=== PATIENT | female | born 1980 | race American Indian/Alaskan Native ===

== ENCOUNTER 2019-07-13 16:37 | Emergency (ER) | payer SELFPAY ==
[2019-07-13 16:48] VITALS: BP 144/96
--- NOTE | 2019-07-13 17:22 | Event Note ---
ED Screening Note ED Screening Note: This initial assessment/diagnostic orders/clinical plan/treatment(s) is/are subject to change based on patients health status, clinical progression and re- assessment by fellow clinical providers in the ED. Further treatment and workup at subsequent clinical providers discretion. Patient/guardian urged not to elope from the ED as their condition may be serious if not clinically assessed and managed. Initial orders include: 38yo black female states that she has neck pain that began 3 days ago while she was laying in bed. She states that it is her posterior neck and worsens with movement. She further states that she has tried ice with no relief.
--- NOTE | 2019-07-13 18:40 | Emergency Department Report ---
ED Neck Pain/Injury HPI - General Chief Complaint: Neck Pain/Injury Stated Complaint: NECK PAIN Time Seen by Provider: 07/13/19 18:35 Mode of arrival: Ambulatory Limitations: No Limitations - History of Present Illness Initial Comments: Patient is 38-year-old female that presented to emergency room with complaints of neck pain and neck stiffness 3 days. Patient denies fever chills. Patient denies blurry vision. Patient denies headache. Patient states the pain is 8 out of 10. Patient states the pain is not rating. Patient denies trauma. Patient states she does not recall twisting or injuring her neck. Patient has not seen any primary care orthopedist. Patient has taken 200 mg of Advil every 4 hours with some relief. MD Complaint: neck pain -: Sudden, days(s) Place: home Severity: constant Severity scale (0 -10): 7 Quality: sharp Consistency: constant Improves With: rest supine, remaining still, lying on side, other (advil 200mg q4 hrs) Worsens With: movement of neck Context: unknown Associated Symptoms: denies: headache, fever, numbness, tingling, weakness, vertigo, difficulty walking, swollen glands, difficulty swallowing, nausea, vomiting Treatments Prior to Arrival: Ibuprofen - Related Data Previous Rx's Medication Instructions Recorded Last Taken Type Ibuprofen [Motrin 800 MG tab] 800 mg PO Q8HR PRN #30 tablet 07/13/19 Unknown Rx methOCARBAMOL [Robaxin TAB] 750 mg PO Q8H PRN #15 tablet 07/13/19 Unknown Rx traMADol [Ultram] 50 mg PO Q4HR PRN #10 tablet 07/13/19 Unknown Rx Allergies Allergy/AdvReac Type Severity Reaction Status Date / Time seafood Allergy Unknown Uncoded 07/13/19 16:45 ED Review of Systems ROS: Stated complaint: NECK PAIN Other details as noted in HPI Constitutional: denies: chills, fever Eyes: denies: eye pain, eye discharge, vision change ENT: denies: ear pain, throat pain Respiratory: denies: cough, shortness of breath, wheezing Cardiovascular: denies: chest pain, palpitations Endocrine: no symptoms reported Gastrointestinal: denies: abdominal pain, nausea, diarrhea Genitourinary: denies: urgency, dysuria, discharge Musculoskeletal: denies: back pain, joint swelling, arthralgia Skin: denies: rash, lesions Neurological: denies: headache, weakness, paresthesias Psychiatric: denies: anxiety, depression Hematological/Lymphatic: denies: easy bleeding, easy bruising ED Past Medical Hx - Past Medical History Previous Medical History?: Yes Hx Hypertension: Yes - Surgical History Past Surgical History?: Yes Additional Surgical History: finger surg, tonsilectomy - Family History Family history: no significant - Social History Smoking Status: Never Smoker Substance Use Type: None - Medications Home Medications: Home Medications Medication Instructions Recorded Confirmed Last Taken Type Ibuprofen [Motrin 800 MG tab] 800 mg PO Q8HR PRN #30 tablet 07/13/19 Unknown Rx methOCARBAMOL [Robaxin TAB] 750 mg PO Q8H PRN #15 tablet 07/13/19 Unknown Rx traMADol [Ultram] 50 mg PO Q4HR PRN #10 tablet 07/13/19 Unknown Rx ED Physical Exam - General Limitations: No Limitations General appearance: alert, in no apparent distress - Head Head exam: Present: atraumatic, normocephalic - Eye Eye exam: Present: normal appearance, PERRL Pupils: Present: normal accommodation - ENT ENT exam: Present: mucous membranes moist - Neck Neck exam: Present: normal inspection, full ROM, other. Absent: tenderness (paraspinal muscle spasm noted), meningismus, lymphadenopathy, thyromegaly - Respiratory Respiratory exam: Present: normal lung sounds bilaterally. Absent: respiratory distress, wheezes, rales - Cardiovascular Cardiovascular Exam: Present: regular rate, normal rhythm. Absent: systolic murmur, diastolic murmur, rubs, gallop - GI/Abdominal GI/Abdominal exam: Present: soft, normal bowel sounds - Rectal Rectal exam: Present: deferred - Extremities Exam Extremities exam: Present: normal inspection, full ROM. Absent: tenderness, calf tenderness - Back Exam Back exam: Present: normal inspection, full ROM, paraspinal tenderness (in the u pper thoracic spine). Absent: tenderness, CVA tenderness (R), CVA tenderness (L), muscle spasm, vertebral tenderness - Neurological Exam Neurological exam: Present: alert, oriented X3 - Psychiatric Psychiatric exam: Present: normal affect, normal mood - Skin Skin exam: Present: warm, dry, intact, normal color. Absent: rash ED Course Vital Signs 07/13/19 07/13/19 16:45 19:23 Temperature 98.1 F Pulse Rate 71 77 Respiratory 16 16 Rate Blood Pressure 144/96 O2 Sat by Pulse 96 100 Oximetry - Reevaluation(s) Reevaluation #1: I discussed clinical findings the patient. I discussed plan of care with patient. Patient agrees with plan of care. Patient is stable for discharge. Patient will be discharged home. Patient given discharge instructions. Patient voiced understanding of discharge instructions 07/13/19 19:08 ED Medical Decision Making - Medical Decision Making Patient is a 38-year-old female that presents emergency room with complaints of neck pain. Patient's finding consistent with cervical sprain. Patient given a muscle relaxer, pain medication, anti-inflammatory. Patient does not have emerg ent medical condition does not require further investigation or further evaluation. - Differential Diagnosis . Neck pain. Cervical sprain Critical care attestation.: If time is entered above; I have spent that time in minutes in the direct care of this critically ill patient, excluding procedure time. ED Disposition Clinical Impression: Neck pain Acute cervical sprain Qualifiers: Encounter type: initial encounter Qualified Code(s): S13.9XXA - Sprain of joints and ligaments of unspecified parts of neck, initial encounter Disposition: TO HOME OR SELFCARE Is pt being admited?: No Does the pt Need Aspirin: No Condition: Stable Instructions: Cervical Spine Strain (ED), Cervical Sprain (ED), Muscle Spasm (ED) Additional Instructions: Patient to follow-up with orthopedist in 2 days. Patient to follow-up with primary care in 2-3 days. Patient to return to ER condition worsens. Patient take meds as directed. Patient to rest. Patient to avoid working until cleared by primary care orthopedist. Patient to rest. Patient to avoid strenuous activity. Prescriptions: Ibuprofen [Motrin 800 MG tab] 800 mg PO Q8HR PRN #30 tablet PRN Reason: pain methOCARBAMOL [Robaxin TAB] 750 mg PO Q8H PRN #15 tablet PRN Reason: Spasms traMADol [Ultram] 50 mg PO Q4HR PRN #10 tablet PRN Reason: Pain Referrals: PRIMARY MD HOLDEN [Primary Care Provider] - 2-3 Days KANA COX MD [Staff Physician] - 2-3 Days Time of Disposition: 19:11
== END 2019-07-13 19:23 | disposition home or self-care (01) ==
LOC: ED 16:37
DX: S13.9XXA Sprain of joints and ligaments of unspecified parts of neck, initial encounter (principal); Z90.89 Acquired absence of other organs; Z91.013 Allergy to seafood; X58.XXXA Exposure to other specified factors, initial encounter; Y93.89 Activity, other specified; Y92.89 Other specified places as the place of occurrence of the external cause; Y99.8 Other external cause status